=== PATIENT | female | born 1985 | race Two or more races ===

== ENCOUNTER 2020-09-13 14:59 | Emergency (ER) | payer OTHER ==
[~2020-09-13] VITALS: Ht 165.1 cm; Wt 57.6 kg
== END 2020-09-13 21:56 | disposition home or self-care (01) ==
LOC: ER 14:59
DX: M54.5 Low back pain (principal); K29.70 Gastritis, unspecified, without bleeding; F06.4 Anxiety disorder due to known physiological condition